=== PATIENT | female | born 1970 | race Caucasian/White ===

== ENCOUNTER 2017-04-21 11:29 | Emergency (ER) | payer OTHER ==
[~2017-04-21] VITALS: Ht 170.2 cm; Wt 104.3 kg
--- NOTE | ~2017-04-21 | EKG ---
[facility] [place] [address] ELECTROCARDIOGRAM REPORT Name: BAILEY PAPPAS Room #: DEP Jean#: [id number] Admission: 04/21/17 Attend Phys: Discharge: 04/21/17 Date of : 68 Report #: [id number] THIS REPORT FOR: //name// [facility] ED Test Date: 2017-04-21 Test Time: 11:37:44 Pat Name: BAILEY PAPPAS Department: Room: Gender: F [employer]: LISA : 1970 Requested By: Geovany Jade Order Number: [id number] MD: Germain Sánchez Measurements Intervals [place] Rate: 104 P: 42 HI: 147 QRS: -4 QRSD: 88 T: 21 QT: 348 QTc: 458 Interpretive Statements Sinus tachycardia Probable left atrial enlargement Abnormal R-wave progression, late transition Baseline wander in lead(s) V3 No previous ECG available for comparison Electronically Signed On 04-22-2017 12:39:08 CDT by Germain Sánchez [email or web address] <ELECTRONICALLY SIGNED> By: Germain Sánchez MD, [facility] 04/22/17 1239 [id number] Germain Sánchez MD, [facility] /EPI
[2017-04-21] MEDS ORDERED: LOPRESSOR50 PO (11:42)
[2017-04-21] MEDS ORDERED: CLONAZEPAM 0.50.5 M1 PO (11:42)
[2017-04-21] MEDS ORDERED: NITROGLYCERIN0.4 MG SUBLING (11:42)
[2017-04-21 12:09] LABS: ABSOLUTE NEUTROPHILS 6.4 thou/uL (1.4-8.2); BASOPHILS 0.6 % (0.0-2.0); EOSINOPHILS 2.8 % (0.0-3.0); HEMATOCRIT 42.7 % (37.0-47.0); HEMOGLOBIN 14.3 gm/dL (12.0-15.0); LYMPHOCYTES 38.4 % (24.0-44.0); MCH 29.2 pg (26.0-34.0); MCHC 33.4 g/dL (28.0-37.0); MCV 87.4 fL (80.0-100.0); MONOCYTES 5.8 % (1.0-8.0); PLATELET COUNT 284 thou/uL (150-400); POLYS 52.4 % (36.0-66.0); RBC 4.89 mil/uL (4.20-5.00); RDW 14.1 % (10.5-14.5); WBC 12.2 thou/uL (4.0-11.0)
[2017-04-21 12:10] LABS: MANUAL DIFF NO
[2017-04-21 12:17] LABS: ANION GAP 11 mmol/L (7-16); BUN 9 mg/dL (7-18); CALCIUM 8.9 mg/dL (8.5-10.1); CHLORIDE 104 mmol/L (98-107); CO2 20 mmol/L (21-32); CREATININE 0.6 mg/dL (0.6-1.0); GLUCOSE 102 mg/dL (74-106); SODIUM 135 mmol/L (136-145)
[2017-04-21 12:19] LABS: POTASSIUM 4.1 mmol/L (3.5-5.1)
[2017-04-21 12:26] LABS: TROPONIN-I < 0.04 ng/mL (<0.04-0.07)
[2017-04-21 13:38] VITALS: BP 131/77
== END 2017-04-21 13:50 | disposition home or self-care (01) ==
LOC: ER 11:29
PROVIDERS: Emergency Medicine
DX: R07.89 Other chest pain (principal); F41.0 Panic disorder [episodic paroxysmal anxiety]; Z98.890 Other specified postprocedural states; Z88.5 Allergy status to narcotic agent